=== PATIENT | female | born 1970 | race Caucasian/White ===

== ENCOUNTER 2017-11-17 13:05 | Observation (INO) | payer OTHER ==
[~2017-11-17 13:05] MED LIST: CEFAZOLIN 2 GM/50 ML (PMX) 50 ML IVPB; LIDOCAINE 1% (MPF) 30 ML INJ
[2017-11-17] MEDS ORDERED: BUPIVACAINE 0.25% (MPF) 30 ML INJ (17:51)
[2017-11-17] MEDS: CEFAZOLIN 2 GM/50 ML (PMX) 50 ML IVPB (18:02)
[2017-11-17] MEDS ORDERED: MIDAZOLAM 1 MG/ML 2 ML INJ (18:06)
[2017-11-17] MEDS: BUPIVACAINE 0.25% (MPF) 30 ML INJ INJ (18:28)
[2017-11-17] MEDS ORDERED: hydrALAzine 20 MG INJ IV (18:30)
[2017-11-17] MEDS ORDERED: DIPHENHYDRAMINE 50 MG INJ IV (18:30)
[2017-11-17] MEDS ORDERED: FENTAnyl 50 MCG/ML VIAL IV (18:30)
[2017-11-17] MEDS ORDERED: HYDROmorphONE 1 MG/5 ML IV SYRINGE IV ×2 (18:30)
[2017-11-17] MEDS ORDERED: MEPERIDINE 25 MG INJ IV (18:30)
[2017-11-17] MEDS ORDERED: LABETALOL HCL 20MG INJ IV (18:30)
[2017-11-17] MEDS ORDERED: morphine 10 MG INJ (18:36)
[2017-11-17] MEDS ORDERED: NEOSTIGMINE 3 MG/3 ML SYRINGE (18:45)
[2017-11-17] MEDS ORDERED: LIDOCAINE 2% (SDV) 5 ML INJ (18:45)
[2017-11-17] MEDS ORDERED: PROPOFOL 20 ML (18:45)
[2017-11-17] MEDS ORDERED: ROCURONIUM 50 MG INJ (18:45)
[2017-11-17] MEDS ORDERED: CEFAZOLIN 1 GM INJ (18:45)
[2017-11-17] MEDS ORDERED: GLYCOPYRROLATE 0.4 MG INJ (18:45)
[2017-11-17] MEDS ORDERED: hydrALAzine 20 MG INJ (18:46)
[2017-11-17] MEDS ORDERED: ONDANSETRON 4 MG INJ (18:47)
[2017-11-17] MEDS: ONDANSETRON 4 MG INJ IV (20:36)
[2017-11-17] MEDS: SOD CHLORIDE 0.9% 1,000 ML IV (22:28)
[2017-11-17] MEDS: HYDROCODONE/APAP (5/325) TAB PO (22:29)
[2017-11-18] MEDS ORDERED: DEXTROSE 50% 50 ML SYRINGE IV ×2 (01:00)
[2017-11-18] MEDS ORDERED: ACETAMINOPHEN 325 MG TAB PO (01:00)
[2017-11-18] MEDS ORDERED: GLUCOSE GEL 15 GRAM TUBE BUCCAL (01:00)
[2017-11-18] MEDS ORDERED: ONDANSETRON 4 MG INJ IV (01:00)
[2017-11-18] MEDS ORDERED: HYDROCODONE/APAP (5/325) TAB PO (01:00)
[2017-11-18] MEDS ORDERED: GLUCAGON 1 MG INJ IM (01:00)
[2017-11-18] MEDS ORDERED: GLUCOSE GEL 15 GRAM TUBE PO ×2 (01:00)
[2017-11-18] MEDS: SOD CHLORIDE 0.9% 1,000 ML IV ×3 (01:00→06:45)
[2017-11-18] MEDS: KETOROLAC 30 MG INJ IV ×4 (01:22→18:18)
[2017-11-18] MEDS: INSULIN ASPART [NOVOLOG] 3 ML PEN SC ×4 (08:28→20:18)
[2017-11-18] MEDS: metFORMIN 500 MG TAB PO ×2 (08:29→17:26)
[2017-11-18] MEDS: BENAZEPRIL 20 MG TAB PO (14:12)
[2017-11-19] MEDS: KETOROLAC 30 MG INJ IV ×2 (00:38→08:28)
[2017-11-19] MEDS: SOD CHLORIDE 0.9% 1,000 ML IV (01:39)
[2017-11-19 05:12] LABS: ADD MAN DIFF? NO
[2017-11-19 05:18] LABS: WHITE BLOOD COUNT 6.8 10^3/ul (4.8-10.8)
[2017-11-19 05:18] LABS: BASOPHILS % 0.4 % (0.0-2.0); EOSINOPHILS # 0.1 10^3/ul (0.0-0.5); EOSINOPHILS % 1.5 % (0.0-7.0); HEMATOCRIT 37.5 % (37.0-47.0); HEMOGLOBIN 12.7 g/dl (12.0-16.0); LYMPHOCYTES # 1.7 10^3/ul (0.8-2.9); LYMPHOCYTES % 25.4 % (15.0-51.0); MEAN CORPUSCULAR HEMOGLOBIN 31.4 pg (29.0-33.0); MEAN CORPUSCULAR HGB CONC 33.9 g/dl (32.0-37.0); MEAN CORPUSCULAR VOLUME 92.8 fl (82.0-101.0); MEAN PLATELET VOLUME 10.9 fl (7.4-10.4); MONOCYTE # 0.5 10^3/ul (0.3-0.9); MONOCYTES % 7.8 % (0.0-11.0); NEUTROPHIL # 4.4 10^3/ul (1.6-7.5); NEUTROPHILS % 64.6 % (39.0-77.0); PLATELET COUNT 169 10^3/UL (140-415); RED BLOOD COUNT 4.04 10^6/ul (4.20-5.40); RED CELL DISTRIBUTION WIDTH 11.8 % (11.5-14.5)
[2017-11-19 05:41] LABS: ANION GAP 9 (8-16); BLOOD UREA NITROGEN 12 mg/dl (7-20); CALCIUM 8.3 mg/dl (8.4-10.2); CARBON DIOXIDE 27 mmol/L (21-31); CHLORIDE 107 mmol/L (97-110); GLUCOSE 131 mg/dl (70-220); POTASSIUM 3.9 mmol/L (3.5-5.1); SODIUM 139 mmol/L (135-144)
[2017-11-19] MEDS: metFORMIN 500 MG TAB PO (08:27)
[2017-11-19] MEDS: BENAZEPRIL 20 MG TAB PO (08:27)
[2017-11-19] MEDS: INSULIN ASPART [NOVOLOG] 3 ML PEN SC (08:34)
== END 2017-11-19 12:35 | disposition home or self-care (01) ==
LOC: SDS 13:05 → MS1 11-18 22:25 → SDS 13:05 → MS1 20:57
PROVIDERS: Surgery
DX: K80.80 Other cholelithiasis without obstruction (principal); I10 Essential (primary) hypertension; E78.5 Hyperlipidemia, unspecified; E11.9 Type 2 diabetes mellitus without complications; E66.9 Obesity, unspecified; Z68.30 Body mass index [BMI] 30.0-30.9, adult
CPT/HCPCS: 47562; 80048; 82962; 85025; 88304